=== PATIENT | female | born 1965 | race Caucasian/White ===

== ENCOUNTER 2018-07-06 03:20 | Emergency (ER) | payer OTHER ==
[~2018-07-06] VITALS: Ht 162.6 cm; Wt 59.0 kg
[2018-07-06] MEDS ORDERED: VENTOLIN HFA 1818 GM INH (03:37)
[2018-07-06] MEDS ORDERED: THERAFLU EXP245.5 M1 PO (03:38)
[2018-07-06] MEDS ORDERED: PREDNISONE 5 MG5 M1 PO (03:38)
[2018-07-06 04:19] LABS: HEMATOCRIT 45.1 % (37.0-47.0); HEMOGLOBIN 15.6 gm/dL (12.0-15.0); MCHC 34.6 g/dL (28.0-37.0); MCV 86.7 fL (80.0-100.0); PLATELET COUNT 214 thou/uL (150-400); RDW 13.1 % (10.5-14.5); WBC 4.4 thou/uL (4.0-11.0)
[2018-07-06 04:26] LABS: CALCIUM 9.3 mg/dL (8.5-10.1); POTASSIUM 3.7 mmol/L (3.5-5.1)
[2018-07-06] MEDS ORDERED: TESSALON PERLE100 MG PO (04:46)
[2018-07-06] MEDS ORDERED: OSELB75 PO (04:46)
[2018-07-06] MEDS ORDERED: ZOFRAN ODT4 MG PO (04:46)
[2018-07-06 04:52] LABS: ABSOLUTE NEUTROPHILS 2.9 thou/uL (1.4-8.2)
[2018-07-06 04:53] LABS: ANISOCYTOSIS 1+; PLATELET ESTIMATE NORMAL
[2018-07-06] MEDS ORDERED: ALBUTEROL2.5 MG/31 INH (04:53)
[2018-07-06 04:59] VITALS: BP 138/93
== END 2018-07-06 05:01 | disposition home or self-care (01) ==
LOC: ER 03:20
PROVIDERS: Emergency Medicine
DX: J10.1 Influenza due to other identified influenza virus with other respiratory manifestations (principal); J45.909 Unspecified asthma, uncomplicated; Z88.5 Allergy status to narcotic agent